=== PATIENT | male | born 1940 | race Caucasian/White ===

== ENCOUNTER 2017-09-02 10:13 | Emergency (ER) | payer OTHER ==
[~2017-09-02] VITALS: Ht 177.8 cm; Wt 95.3 kg
[~2017-09-02 10:13] MED LIST: AMOX1TAB12 PO; COZAAR50 MG; LIPITOR40 MG; TRICOR145 MG
[2017-09-02] MEDS ORDERED: TOPROL XL50 MG (10:29)
[2017-09-02] MEDS ORDERED: DIOVAN320 MG (10:29)
[2017-09-02] MEDS ORDERED: PROTONIX40 MG PO (13:29)
== END 2017-09-02 13:44 | disposition home or self-care (01) ==
LOC: ER 10:13
DX: K21.9 Gastro-esophageal reflux disease without esophagitis (principal)

== ENCOUNTER 2023-01-05 09:17 | Emergency (ER) | payer OTHER ==
[~2023-01-05] VITALS: Ht 177.8 cm; Wt 97.1 kg
[~2023-01-05 09:17] MED LIST changes: +DIOVAN320 MG; +PROTONIX40 MG PO; +TOPROL XL50 MG
[2023-01-05] MEDS ORDERED: NEURONTIN800 MG PO (10:00)
[2023-01-05] MEDS ORDERED: XANAX2 MG PO (10:00)
== END 2023-01-05 15:48 | disposition home or self-care (01) ==
LOC: ER 09:17
PROVIDERS: Emergency Medicine
DX: R10.9 Unspecified abdominal pain (principal)
CPT/HCPCS: 36415; 72100; 74240; 96372; 99284; J2360

== ENCOUNTER 2023-03-07 09:10 | Emergency (ER) | payer OTHER ==
[~2023-03-07] VITALS: Ht 177.8 cm; Wt 96.6 kg
[~2023-03-07 09:10] MED LIST changes: +NEURONTIN800 MG PO; +XANAX2 MG PO
[2023-03-07] MEDS ORDERED: COZAAR100 MG PO (09:26)
[2023-03-07] MEDS ORDERED: ECOTRIN81 MG (09:27)
[2023-03-07] MEDS ORDERED: TAMS0.4C PO (09:27)
[2023-03-07 12:28] LABS: HEMATOCRIT 43.3 % (39.0-48.0); HEMOGLOBIN 14.8 g/dL (13-16.00); MEAN CELL VOLUME 91.3 fL (80.0-100.00); MEAN CORPUSCULAR HEMOGLOBIN 31.1 pg (27.00-32.0); MEAN CORPUSCULAR HGB CONC 34.1 g/dl (32.0-36.0); PLATELET COUNT 235 K/uL (150-450); RED BLOOD COUNT 4.75 M/uL (4.00-6.00); RED CELL DISTRIBUTION WIDTH 13.5 % (11.5-14.5)
[2023-03-07 13:34] LABS: CALCIUM 10.5 mg/dL (8.5-10.1); CREATININE SERUM 2.7 mg/dL (0.70-1.30); GFR 22.63; POTASSIUM 4.51 mEq/L (3.5-5.1)
== END 2023-03-07 17:52 ==
LOC: ER 09:10
PROVIDERS: General Practice
DX: J06.9 Acute upper respiratory infection, unspecified (principal); E78.00 Pure hypercholesterolemia, unspecified; I10 Essential (primary) hypertension; N40.0 Benign prostatic hyperplasia without lower urinary tract symptoms; M79.7 Fibromyalgia; Z20.822 Contact with and (suspected) exposure to COVID-19